=== PATIENT | female | born 2000 | race Caucasian/White ===

== ENCOUNTER 2018-05-05 20:31 | Emergency (ER) | payer BC ==
[~2018-05-05] VITALS: Ht 162.6 cm; Wt 59.1 kg
[2018-05-05 20:33] VITALS: BP 114/70; TEMP 98.1
[2018-05-05] MEDS ORDERED: ASHLYNA1 TAB PO (20:54)
[2018-05-05] MEDS ORDERED: NEURONTIN400 MG/CAP PO (20:55)
[2018-05-05 21:57] VITALS: PULSE 59
== END 2018-05-05 21:59 | disposition home or self-care (01) ==
LOC: COL.ER 20:31
DX: T24.131A Burn of first degree of right lower leg, initial encounter (principal); G43.909 Migraine, unspecified, not intractable, without status migrainosus; X17.XXXA Contact with hot engines, machinery and tools, initial encounter; Y92.410 Unspecified street and highway as the place of occurrence of the external cause